=== PATIENT | male | born 1960 | race Caucasian/White ===

== ENCOUNTER 2023-11-25 20:26 | Emergency (ER) | payer OTHER, MEDICARE, SELFPAY ==
[2023-11-25 20:31] VITALS: BP 151/85; BMI 26.5
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
[2023-11-25 22:39] VITALS: BP 133/80
== END 2023-11-25 22:42 | disposition home or self-care (01) ==
LOC: EMR 20:26
PROVIDERS: EMERGENCY PHYSICIAN Emergency Medicine; FAMILY PHYSICIAN Physician Assistant Medical
DX: S16.1XXA Strain of muscle, fascia and tendon at neck level, initial encounter (principal); V49.40XA Driver injured in collision with unspecified motor vehicles in traffic accident, initial encounter; R03.0 Elevated blood-pressure reading, without diagnosis of hypertension
CPT/HCPCS: 99282

== ENCOUNTER → 2023-12-14 06:52 | Outpatient (REF) | payer OTHER, MEDICARE, SELFPAY | LOC: PAVMRI 06:52 | PROVIDERS: ATTENDING PHYSICIAN Physical Medicine & Rehabilitation; FAMILY PHYSICIAN Physician Assistant Medical | DX: M54.2 Cervicalgia (principal) | CPT/HCPCS: 72141 ==

== ENCOUNTER → 2024-04-16 06:57 | Outpatient (REF) | payer MEDICARE, OTHER, SELFPAY ==
[2024-04-16 10:33] LABS: ALT (SGPT) 27 U/L (0-50); AST (SGOT) 25 U/L (17-59); Albumin 4.3 g/dl (3.5-5.0); Alkaline Phosphatase 54 U/L (38-126); Blood Urea Nitrogen 18 mg/dl (9-20); Calcium 9.6 mg/dl (8.4-10.2); Carbon Dioxide 29 mmol/L (22-30); Chloride 104 mmol/L (98-107); Glucose 94 mg/dl (70-99); HDL Cholesterol 57 mg/dl; LDL Cholesterol, Calculated 85 mg/dl; Potassium 4.2 mmol/L (3.5-5.1); Sodium 140 mmol/L (135-145); Total Bilirubin 0.8 mg/dl (0.2-1.3); Total Cholesterol 164 mg/dl (50-199); Total Protein 6.9 g/dl (6.3-8.2); Triglyceride 114 mg/dl (10-149); Very Low Density Lipoprotein 22 mg/dl (0-30); eGFR > 60.00
== END ==
LOC: HWLAB 06:57
PROVIDERS: ATTENDING PHYSICIAN Physician Assistant Medical
DX: E78.00 Pure hypercholesterolemia, unspecified (principal)
CPT/HCPCS: 36415; 80053; 80061

== ENCOUNTER → 2024-06-29 06:21 | Outpatient (REF) | payer MEDICARE, OTHER, SELFPAY ==
[2024-06-29 12:06] LABS: PSA, Total - Diagnostic 1.37 ng/ml (0.0-4.0)
== END ==
LOC: HWLAB 06:21
PROVIDERS: ATTENDING PHYSICIAN Radiology Radiation Oncology; FAMILY PHYSICIAN Physician Assistant Medical
DX: C61 Malignant neoplasm of prostate (principal)
CPT/HCPCS: 36415; 84153

== ENCOUNTER 2024-10-04 06:24 | Day surgery (SDC) | payer MEDICARE, OTHER, SELFPAY | END 2024-10-04 15:46 | disposition home or self-care (01) | LOC: GI 06:24 | PROVIDERS: ATTENDING PHYSICIAN Internal Medicine Gastroenterology; FAMILY PHYSICIAN Physician Assistant Medical | DX: Z12.11 Encounter for screening for malignant neoplasm of colon (principal); K64.0 First degree hemorrhoids; D12.3 Benign neoplasm of transverse colon; D12.2 Benign neoplasm of ascending colon; D12.0 Benign neoplasm of cecum; K62.89 Other specified diseases of anus and rectum; Z86.0100 Personal history of colon polyps, unspecified | CPT/HCPCS: 45385; 45380; 88305 ==